=== PATIENT | female | born 1945 | race Caucasian/White ===

== ENCOUNTER 2017-09-17 06:50 | Day surgery (SDC) | payer BC ==
[2017-09-14 14:10] VITALS: BMI 20.7
[2017-09-17 07:23] VITALS: TEMP 97.4
[2017-09-17] MEDS ORDERED: PROPOFOL 20 ML ONE ×5 (07:36→07:37)
[2017-09-17 09:30] VITALS: BP 117/51; PULSE 75
--- NOTE | 2017-09-18 13:24 | PATH ---
Surgical Pathology Report Patient Name: HARESH AVILA [facility]. Rec. #: [id number] /Age/Gender: 1945 (Age: 72) / F Account: [id number] Location: [facility]-ENDOSCOPY Taken: 09/17/2017 Received: 09/17/2017 Reported: 09/18/2017 Physicians: Adi Cosme M.D. Specimen(s) Received A: BX RECTUM B: LARGE SESSILE POLYP RECTUM C: CECAL POLYP D: BX PROXIMAL TRANSVERSE COLON Clinical History Preoperative diagnosis: Family history of colon cancer, for screening Postoperative diagnosis: Angiodysplasia, diverticulosis, colon polyps Final Diagnosis A. COLON, RECTUM, BIOPSY: HYPERPLASTIC POLYP. B. COLON, RECTUM, POLYPECTOMY: HYPERPLASTIC POLYP WITH THERMAL ARTIFACT. C. COLON, CECUM, BIOPSY: HYPERPLASTIC POLYP. D. COLON, PROXIMAL TRANSVERSE, BIOPSY: TUBULAR ADENOMA. Electronically Signed Leandro Russell M.D. Gross Description A. Received in formalin, labeled "biopsy polyp rectum" are 5 montemayor, irregular portions of soft tissue ranging from 0.2-0.4 cm. in greatest dimension. The specimens are submitted in toto in one cassette. B. Received in formalin, labeled "large sessile polyp rectum" are 2 montemayor, polypoid portions of soft tissue measuring 0.6 and 0.7 cm. in greatest dimension. The specimens are submitted in toto in one cassette. C. Received in formalin, labeled "cecal polyp" are 5 montemayor, irregular portions of soft tissue ranging from 0.2-1.1 cm. in greatest dimension. The specimens are submitted in toto in one cassette. D. Received in formalin, labeled "biopsy proximal transverse colon polyp" are 2 montemayor, irregular portions of soft tissue averaging 0.3 cm. in greatest dimension. The specimens are submitted in toto in one cassette. DL/09/17/2017 saudi09/17/2017
== END 2017-09-17 09:44 | disposition home or self-care (01) ==
LOC: JASU-ENDO 06:50
PROVIDERS: ATTEND Internal Medicine Gastroenterology
PROC: 0DBE8ZX Excision of Large Intestine, Via Natural or Artificial Opening Endoscopic, Diagnostic (ICD-10-PCS; 2017-09-17)
PROC: 0DBP8ZX Excision of Rectum, Via Natural or Artificial Opening Endoscopic, Diagnostic (ICD-10-PCS; 2017-09-17)
PROC: 0DBL8ZX Excision of Transverse Colon, Via Natural or Artificial Opening Endoscopic, Diagnostic (ICD-10-PCS; 2017-09-17)
PROC: 3E0H8GC Introduction of Other Therapeutic Substance into Lower GI, Via Natural or Artificial Opening Endoscopic (ICD-10-PCS; 2017-09-17)
PROC: 0DBH8ZX Excision of Cecum, Via Natural or Artificial Opening Endoscopic, Diagnostic (ICD-10-PCS; principal; 2017-09-17 08:00)
DX: Z12.11 Encounter for screening for malignant neoplasm of colon (principal); K62.1 Rectal polyp; D12.0 Benign neoplasm of cecum; D12.3 Benign neoplasm of transverse colon; K64.8 Other hemorrhoids; K57.30 Diverticulosis of large intestine without perforation or abscess without bleeding; K55.20 Angiodysplasia of colon without hemorrhage; Z86.010 Personal history of colon polyps; Z80.0 Family history of malignant neoplasm of digestive organs

== ENCOUNTER 2018-11-13 07:23 | Day surgery (SDC) | payer BC ==
[2018-11-12 14:03] VITALS: BMI 21.1
[2018-11-13 09:36] VITALS: TEMP 97.6
[2018-11-13 09:54] VITALS: PULSE 65
[2018-11-13 10:20] VITALS: BP 110/64
--- NOTE | 2018-11-14 13:56 | PATH ---
Surgical Pathology Report Patient Name: HARESH AVILA [facility]. Rec. #: [id number] /Age/Gender: 1945 (Age: 73) / F Account: [id number] Location: U-ENDOSCOPY Taken: 11/13/2018 Received: 11/13/2018 Reported: 11/14/2018 Physicians: Adi Cosme M.D. Specimen(s) Received A: TRANSVERSE COLON POLYP B: RECTAL POLYP Clinical History Large rectal sessile polyp Postoperative diagnosis: Polyp transverse colon, history of rectal polyp Final Diagnosis A. COLON, TRANSVERSE, BIOPSY: HYPERPLASTIC POLYP. B. COLON, RECTUM, BIOPSY: COLONIC MUCOSA WITH FOCAL HYPERPLASTIC CHANGES, AND LAMINA PROPRIA EDEMA. Electronically Signed Leandro Russell M.D. Gross Description A. Received in formalin, labeled "transverse colon polyp" is a montemayor, irregular portion of soft tissue measuring 0.5 cm. in greatest dimension. The specimen is submitted in toto in one cassette. B. Received in formalin, labeled "biopsy rectal polyp area" are 3 montemayor, irregular portions of soft tissue ranging from 0.2-0.3 cm. in greatest dimension. The specimens are submitted in toto in one cassette. /11/13/2018 saudi11/13/2018
== END 2018-11-13 10:18 | disposition home or self-care (01) ==
LOC: JASU-ENDO 07:23
PROVIDERS: ATTEND Internal Medicine Gastroenterology
PROC: 0DBP8ZX Excision of Rectum, Via Natural or Artificial Opening Endoscopic, Diagnostic (ICD-10-PCS; principal; 2018-11-13 08:45)
DX: Z12.11 Encounter for screening for malignant neoplasm of colon (principal); Z86.010 Personal history of colon polyps; K64.8 Other hemorrhoids; K63.89 Other specified diseases of intestine
CPT/HCPCS: 88305-TC

== ENCOUNTER 2020-03-03 10:25 | Inpatient (IN) | payer BC, OTHER ==
[2020-03-02 10:03] VITALS: BMI 20.3
--- NOTE | 2020-03-03 09:58 | HP ---
Satellite [facility] - Chief Complaint Chief Complaint: left knee pain - Past Medical History Allergies/Adverse Reactions: Allergies Allergy/AdvReac Type Severity Reaction Status Date / Time meperidine HCl [From Demerol] Allergy Severe HARD TO Verified 03/28/15 15:41 WAKE UP shellfish derived Allergy Severe Swelling Verified 03/28/15 15:41 peanut Allergy Verified 09/14/17 14:11 - Current Medications Current Medications: Home Medications Medication Instructions Recorded Salmeterol/Fluticasone [Advair 1 inh IH BID 03/21/12 250Mcg/50Mcg -] Ascorbic Acid [Vitamin C -] 2 tab PO DAILY 09/14/17 Citalopram Hydrobromide 10 mg PO DAILY 09/14/17 [Citalopram HBr] Donepezil HCl [Aricept] 10 mg PO DAILY 09/14/17 Biotin 5,000 mcg PO DAILY 09/17/17 Calcium Carbonate [Calcium] 1,000 mg PO DAILY 09/17/17 Mv-Min/Iron/Folic/Calcium/Vitk 1 each PO DAILY 09/17/17 [Women's Daily Formula Tablet] Oxycodone HCl/Acetaminophen 1 tab PO Q6H #12 tablet MDD 4 03/03/20 [Percocet 5-325 mg Tablet] Satellite Physical Exam - Physical Examination General Appearance: Well Nourished, Well Developed, Alert & Oriented x3 ENT: Clear Lung: Normal air movement Extremities: Other (left knee- + hematoma, + ttp, decr rom, nvi) Neurological: Intact, Alert, Oriented Satellite Impression/Plan - Impression/Plan Impression: left knee hematoma Operative Procedure: left knee I&D of hematoma Date to be Performed: 03/03/20
[2020-03-03] MEDS ORDERED: LIDOCAINE HCL/PF 2% SDV 5ML VIAL ONE (12:31)
[2020-03-03] MEDS ORDERED: PROPOFOL 20 ML ONE (12:31)
[2020-03-03] MEDS ORDERED: ceFAZolin 2 GRAM PREMIX BAG IVPB ONE (12:44)
[2020-03-03] MEDS ORDERED: DEXAMETHASONE SOD PHOSPHATE 4 MG/1 ML VIAL ONE (12:51)
--- NOTE | 2020-03-03 13:01 | OP ---
Operative Note - Note: Operative Date: 03/03/20 ([facility]) Pre-Operative Diagnosis: left knee hematoma Operation: left knee incision and drainage of hematoma Post-Operative Diagnosis: Same as Pre-op Surgeon: Carlos Martinez Anesthesia: Local Specimens Removed: hematoma Estimated Blood Loss (mls): 10
[2020-03-03] MEDS ORDERED: ONDANSETRON 4 MG/2 ML VIAL IVPUSH PRN (13:13)
[2020-03-03] MEDS ORDERED: oxyCODONE HCL 5 MG TABLET PO PRN (13:13)
[2020-03-03] MEDS ORDERED: ACETAMINOPHEN 325 MG TABLET (FP) PO PRN (13:13)
[2020-03-03] MEDS ORDERED: ACETAMINOPHEN 1000 MG/100 ML VIAL (NON FORMULARY) IVPB ONE (13:14)
[2020-03-03] MEDS ORDERED: ACETAMINOPHEN INJECTION 100 ML IVPB ONE (13:15)
[2020-03-03] MEDS ORDERED: LACTATED RINGERS SOLUTION 1,000 ML IV SCH (13:15)
[2020-03-03 16:05] VITALS: BP 120/72; PULSE 86; TEMP 97.1
--- NOTE | 2020-03-04 12:40 | OP ---
DATE OF OPERATION: 03/03/2020 PREOPERATIVE DIAGNOSIS: Large prepatella hematoma. POSTOPERATIVE DIAGNOSIS: Large prepatella hematoma. PROCEDURE: Open exploration, evacuation of hematoma, and irrigation and debridement. SURGEON: Carlos Martinez MD ANESTHESIA: LMA. CLOSURE: 3-0 nylon. COMPLICATIONS: None. CONDITION: Stable condition. DESCRIPTION OF OPERATIVE PROCEDURE: The patient was taken to the operating room on March 03, 2020. General anesthesia with LMA was administered by the anesthesiologist. IV prior to the case. The left lower extremity was prepped and draped in the usual sterile fashion. A 2-inch incision longitudinally a few centimeters off the midline was incised at the level of the superior pole of the patella. It could not be directly in the midline due to a large eschar in that region. Full-thickness was carried down through the skin. An immediate gush of hematoma was encountered. The hematoma was milked out of the wound. It extended significantly medially, anteriorly, and inferiorly from that region. Pulse antibiotic irrigation of 3 to 4 L was pulsed throughout the incision. Any loose bursal fragments were dbrided. The entire area was palpated to ensure that there was no communication between this and the knee joint itself. The extensor mechanism was found to be completely intact. The area was completely dried and drained of fluid from inside the knee. The incision was closed with 3-0 nylon. Xeroform was placed as a pressure dressing with a Mcclure dressing was applied. No drains were left. Estimated blood loss was negligible. The patient was awakened from anesthesia and transferred to the recovery room in stable condition. No complications. Estimated blood loss negligible. CARLOS MARTINEZ M.D. [id number]
== END 2020-03-03 15:50 | disposition home or self-care (01) | DRG 605 ==
LOC: J2C 10:25 → EDSTATUS 14:30
PROVIDERS: ADMIT Orthopaedic Surgery; ATTEND Orthopaedic Surgery
PROC: 0HDLXZZ Extraction of Left Lower Leg Skin, External Approach (ICD-10-PCS; 2020-03-03)
PROC: 0Y9G0ZZ Drainage of Left Knee Region, Open Approach (ICD-10-PCS; principal; 2020-03-03 12:30)
DX: S80.02XA Contusion of left knee, initial encounter (principal); X58.XXXA Exposure to other specified factors, initial encounter; J44.9 Chronic obstructive pulmonary disease, unspecified
CPT/HCPCS: 94760; J0131

== ENCOUNTER 2021-02-18 07:29 | Emergency (ER) | payer BC ==
[2021-02-18 07:44] VITALS: BP 131/71; PULSE 87; TEMP 98; BMI 20.5
[2021-02-18] MEDS ORDERED: CLINDAMYCIN 600MG PREMIX IVPB 600 MG/50 ML BAG IVPB ONE ×2 (07:59→08:03)
[2021-02-18 08:19] LABS: BASO % 0.8 % (0-2.0); EOS % 10.1 % (0-4.5); HEMATOCRIT 39.9 % (32.4-45.2); HEMOGLOBIN 13.5 GM/dL (10.7-15.3); LYMPH % 22.4 % (8-40); MCH 30.9 pg (25.7-33.7); MCHC 33.8 g/dl (32.0-36.0); MEAN CELL VOLUME 91.3 fl (80-96); MONO % 6.1 % (3.8-10.2); NEUT % 60.6 % (42.8-82.8); PLATELET COUNT 230 10^3/uL (134-434); RBC 4.37 M/mm3 (3.60-5.2); RDW 13.8 % (11.6-15.6); WHITE BLOOD COUNT 7.8 K/mm3 (4.0-10.0)
[2021-02-18 08:35] LABS: ALBUMIN 3.4 g/dl (3.4-5.0); BLOOD UREA NITROGEN 18.6 mg/dL (7-18); CALCIUM 9.3 mg/dL (8.5-10.1)
[2021-02-18 08:38] LABS: CREATININE 0.6 mg/dL (0.55-1.3)
[2021-02-18 08:40] LABS: BILIRUBIN,TOTAL 0.4 mg/dL (0.2-1); TOT PROT 7.7 g/dl (6.4-8.2)
== END 2021-02-18 09:35 | disposition home or self-care (01) ==
LOC: JERFT 07:29 → JER 07:29 → JERFT 09:35
PROC: 3E033GC Introduction of Other Therapeutic Substance into Peripheral Vein, Percutaneous Approach (ICD-10-PCS; principal; 2021-02-18)
DX: L03.113 Cellulitis of right upper limb (principal)
CPT/HCPCS: 36415; 80053; 85025; 99284-25

== ENCOUNTER 2022-07-17 04:49 | Day surgery (SDC) | payer BC ==
[2022-07-12 12:08] VITALS: BMI 20.9
[2022-07-17 10:32] VITALS: BP 127/63; PULSE 75; RESP 16
[2022-07-17 12:38] VITALS: TEMP 98
== END 2022-07-17 11:06 | disposition home or self-care (01) ==
LOC: JASU-ENDO 04:49
PROVIDERS: ATTEND Internal Medicine Gastroenterology
PROC: 0DJD8ZZ Inspection of Lower Intestinal Tract, Via Natural or Artificial Opening Endoscopic (ICD-10-PCS; principal; 2022-07-17 10:00)
DX: Z12.11 Encounter for screening for malignant neoplasm of colon (principal)

== ENCOUNTER 2023-02-25 13:41 | Emergency (ER) | payer BC ==
[2023-02-25 13:43] VITALS: BP 160/81; PULSE 83; RESP 18; TEMP 98.8; BMI 20.8
== END 2023-02-25 15:16 | disposition home or self-care (01) ==
LOC: JERFT 13:41 → JER 13:41 → JERFT 15:16
DX: S81.812A Laceration without foreign body, left lower leg, initial encounter (principal); W54.1XXA Struck by dog, initial encounter
CPT/HCPCS: 99283-25